=== PATIENT | male | born 1970 | race Caucasian/White ===

== ENCOUNTER 2022-10-14 15:16 | Outpatient (CLI) | payer BC, SELFPAY | END 2022-10-14 15:17 | disposition home or self-care (01) | LOC: NFLDREF 15:17 | PROVIDERS: PCP Internal Medicine; Visit Provider Internal Medicine | DX: R21 Rash and other nonspecific skin eruption (principal) | CPT/HCPCS: 80053 ==

== ENCOUNTER 2023-10-12 09:18 | Emergency (ER) | payer BC, SELFPAY ==
[2023-10-12 09:22] VITALS: BP 125/75; PULSE 72; RESP 18; TEMP 36.5; O2SAT 94; BMI 32.5
--- NOTE | 2023-10-12 09:49 | ED_ITS ---
HPI - Wound/Laceration General Chief Complaint: Laceration/Wound Stated Complaint: LT thumb laceration Time Seen by Provider: 10/12/23 09:34 History of Present Illness HPI narrative: This 52-year-old male comes in with a laceration on the dorsal aspect of his left thumb. He was using a razor blade and accidentally cut this area of his thumb. He has been applying direct pressure but it continues to bleed. He states that his tetanus status is up-to-date. Related Data Home Medications ?Medication ?Instructions ?Recorded ?Confirmed cetirizine 10 mg capsule (Zyrtec) 10 mg PO QDAY PRN 10/14/22 10/12/23 omeprazole 20 mg capsule,delayed 20 mg PO QDAY 10/14/22 10/12/23 release Previous Rx's ?Medication ?Instructions ?Recorded prednisone 20 mg tablet 20 mg PO BID Rash #20 tabs 10/14/22 Allergies Allergy/AdvReac Type Severity Reaction Status Date / Time No Known Drug Allergies Allergy Verified 10/12/23 09:24 Review of Systems Status of ROS: Reports: 10 or more systems reviewed and unremarkable except as noted in History and below Narrative: Constitutional: No fevers, no weight gain or loss. Eyes: No discharge. No vision changes. HENT: No congestion, no sore throat, no ear pain. Cardiovascular: No chest pain, no palpitations. Respiratory: No shortness of breath, no wheezes, no cough. Gastrointestinal: No abdominal pain, no vomiting, no diarrhea. Genitourinary: No dysuria, no hematuria. Musculoskeletal: Normal range of motion. Skin: No rashes, no pruritis. Neurological: No dizziness, weakness, sensory change, speech change. Endo/Heme/Allergies: No bruising or bleeding. No polydipsia. Pysch: no suicidality, no anxiety, no insomnia. All other systems reviewed and are negative. [facility] Medical History (Updated 10/12/23 @ 09:52 by Misael Damon MD) Rash ?R21 - Rash and other nonspecific skin eruption (ICD-10) Exam Narrative: Exam Narrative: Constitutional: Well-developed, well-nourished, no acute distress. HEENT: Normocephalic, atraumatic. Neck: Normal range of motion. Nontender. Supple. Heart: Intact distal pulses. Lungs: No chest discomfort. No wheezes, rhonchi, or rales. Abdomen: Nontender. Back: Normal range of motion. Extremities: Normal range of motion. 3 cm linear laceration across the dorsal aspect of his left thumb. Nerve and tendon function is intact. Skin: Intact. No rash. Warm. No erythema or pallor. Neurologic: No altered sensation. No weakness. Alert and oriented. Psychiatric: No suicidality. No anxiety or depression. No insomnia. Nursing notes and vitals signs are reviewed. Const: Vital Signs, click to edit/add: Vital Signs - 24 hr 10/12/23 09:22 Temperature 97.7 F Pulse Rate [Right Pulse Oximeter] 72 Respiratory Rate 18 Blood Pressure [Ri ght Upper Arm] 125/75 Pulse Oximetry 94 Oxygen Delivery Me thod Room Air Course Vital Signs Vital signs: Initial Vital Signs Temperature 97.7 F 10/12/23 09:22 Temperature Source Temporal Artery Scan 10/12/23 09:22 Pulse Rate 72 10/12/23 09:22 Respiratory Rate 18 10/12/23 09:22 Blood Pressure 125/75 10/12/23 09:22 Blood Pressure Mean 91 10/12/23 09:22 Blood Pressure Position Sitting 10/12/23 09:22 Pulse Oximetry 94 10/12/23 09:22 Oxygen Delivery Method Room Air 10/12/23 09:22 Vital Signs Temperature 97.7 F 10/12/23 09:22 Pulse Rate 72 10/12/23 09:22 Respiratory Rate 18 10/12/23 09:22 Blood Pressure 125/75 10/12/23 09:22 Pulse Oximetry 94 10/12/23 09:22 Oxygen Delivery Method Room Air 10/12/23 09:22 Temperature 97.7 F 10/12/23 09:22 Pulse Rate 72 10/12/23 09:22 Respiratory Rate 18 10/12/23 09:22 Blood Pressure 125/75 10/12/23 09:22 Pulse Oximetry 94 10/12/23 09:22 Oxygen Delivery Method Room Air 10/12/23 09:22 MDM - Wound/Laceration MDM Narrative Medical decision making narrative: This patient has a laceration to his thumb that continues to bleed despite direct pressure. His tetanus status is up-to-date. The wound was anesthetized using lidocaine 1% with epinephrine and then explored to its base. I placed 5 sutures in interrupted fashion using 4.0 Ethilon suture. This cause the bleeding to stop and approximated the wound edges nicely. Instructions were given regarding wound care. The wound was bandaged. Discharge Plan Discharge Clinical Impression: Laceration Patient Disposition: Home, Self-Care Condition: Improved Additional Instructions: Keep wound clean and dry. Follow-up with urgent care or clinic in 7-10 days for suture removal. Return if worsening. Prescriptions: No Action Zyrtec 10 mg capsule 10 mg PO QDAY PRN omeprazole 20 mg capsule,delayed release(DR/EC) 20 mg PO QDAY prednisone 20 mg tablet 20 mg PO BID Qty: 20 0RF Follow Up/Referrals: Gerber Deras MD [Primary Care Provider] - Stand Alone Forms: [employer] Info Instructions
[2023-10-12] MEDS: TETANUS/DIPHTH/PERTUSSIS 0.5 ML SYRINGE IM (10:21)
== END 2023-10-12 10:47 | disposition home or self-care (01) ==
PROVIDERS: Emergency Provider Emergency Medicine Emergency Medical Services; PCP Internal Medicine
DX: S61.012A Laceration without foreign body of left thumb without damage to nail, initial encounter (principal); W26.9XXA Contact with unspecified sharp object(s), initial encounter
CPT/HCPCS: 12002; 90471; 90715; 99283; 99284